=== PATIENT | male | born 1945 | race Caucasian/White ===

== ENCOUNTER 2017-11-01 06:38 | Day surgery (SDC) | payer MEDICARE, BC ==
[2017-11-01] MEDS ORDERED: Lactated Ringers 1,000 ML IV SCH (06:45)
[2017-11-01] MEDS ORDERED: Sodium Chloride 0.9% 10 ML Syringe FLUSH PRN (06:45)
[2017-11-01] MEDS ORDERED: Propofol 200 MG/20 ML SDV IV ONE (08:00)
[2017-11-01] MEDS ORDERED: Midazolam 1 MG/ML 2 ML SDV IV ONE (08:00)
--- NOTE | 2017-11-01 08:30 | PCM.OPNOTE ---
- General Post-Op/Procedure Note Date of Surgery/Procedure: 11/01/17 Operative Procedure(s): c scope with bx Findings: sigmoid polyps x2 rectal polyps x7 Pre Op Diagnosis: + cologuard Post-Op Diagnosis: sigmoid polyps x2. rectal polyps x7 Anesthesia Technique: MAC Primary Surgeon: Jesse Bowser Anesthesia Provider: Angi Thompson Pathology: sigmoid polyps x2 rectal polyps x7 Complications: None Condition: Good Free Text/Narrative:: see dictation
--- NOTE | 2017-11-01 09:03 | OR ---
DATE OF OPERATION: 11/01/2017 SURGEON: Jesse Bowser MD PROCEDURE PERFORMED: Colonoscopy with hot loop and cold forceps biopsy. PREOPERATIVE DIAGNOSIS: Positive Cologuard test. POSTOPERATIVE DIAGNOSIS: Sigmoid polyps x2, rectal polyps x7. INDICATIONS FOR PROCEDURE: This is a 71-year-old white male, who is referred with a positive Cologuard. He was offered and accepted colonoscopy. DESCRIPTION OF PROCEDURE: After an excellent IV sedation was administered, digital rectal exam was performed. No marked abnormality was noted. The flexible colonoscope was inserted and advanced to the cecum without difficulty. The prep was excellent. The following findings were noted: Ascending colon, unremarkable. Transverse colon, unremarkable. Descending colon at the rectosigmoid junction, 2 small hyperplastic appearing lesions, biopsied with cold biopsy forceps and sent for permanent. Rectum from the anal verge to about 10 cm was grand total of 7 polyps, 3 of them were larger enough to be biopsied with a combination of hot loop and cold loop forceps biopsy. There were 4 smaller polyps, which appeared to be consistent with hyperplasia, was also biopsied. These were all submitted in 1 container. The colon was deflated. Scope was removed. The patient tolerated the procedure well and was taken to recovery in good condition. /[id number] /RADHAL
== END 2017-11-01 09:50 | disposition home or self-care (01) ==
LOC: FB.SDS 06:38
PROVIDERS: ATTEND Surgery
DX: Z12.11 Encounter for screening for malignant neoplasm of colon (principal); I10 Essential (primary) hypertension; E78.5 Hyperlipidemia, unspecified; J30.9 Allergic rhinitis, unspecified; F17.210 Nicotine dependence, cigarettes, uncomplicated; K63.5 Polyp of colon; Z85.828 Personal history of other malignant neoplasm of skin; Z90.89 Acquired absence of other organs
CPT/HCPCS: 00810; 45380; 45384; 88305; J2250; J2704; J7120